=== PATIENT | male | born 1975 | race Caucasian/White ===

== ENCOUNTER 2017-12-12 23:39 | Emergency (ER) | payer MEDICAID ==
--- NOTE | 2017-12-13 00:40 | ED PDOC ---
HPI: Back Chief Complaint (Provider): Right lower back pain, radaiting down the right leg History Per: Patient History/Exam Limitations: no limitations Onset/Duration Of Symptoms: Days Current Symptoms Are (Timing): Still Present Quality Of Discomfort: Sharp Severity: Moderate Previous Symptoms: None Associated Symptoms: None Additional Complaint(s): Pt reports similar 6 years ago, has MRI at that time which showed herniated disc. PT denies fever/chills. No bladder or bowel incontinence. No numbness/tingling. <Svitlana Vega - Last Filed: 12/13/17 01:41> <Jace Bower - Last Filed: 12/14/17 05:07> Time Seen by Provider: 12/13/17 00:00 Chief Complaint (Nursing): Back Pain Past Medical History Reviewed: Historical Data, Nursing Documentation, Vital Signs Vital Signs: Last Vital Signs Temp 98.9 F 12/12/17 23:56 Pulse 86 12/12/17 23:56 Resp 16 12/12/17 23:56 BP 179/107 H 12/12/17 23:56 Pulse Ox 98 12/12/17 23:56 - Medical History PMH: Diabetes - Surgical History Surgical History: No Surg Hx - Family History Family History: States: No Known Family Hx - Living Arrangements Living Arrangements: With Family - Social History Current smoker - smoking cessation education provided: No <Svitlana Vega - Last Filed: 12/13/17 01:41> Vital Signs: Last Vital Signs Temp 98.2 F 12/13/17 01:24 Pulse 83 12/13/17 01:24 Resp 18 12/13/17 01:24 BP 139/82 12/13/17 01:24 Pulse Ox 98 12/13/17 01:42 <Jace Bower - Last Filed: 12/14/17 05:07> - Home Medications Home Medications: Ambulatory Orders Medication Instructions Recorded Acetic Acid/Antipyrine/Benzo 2 drop OT QID PRN #10 ml 12/26/13 [Auralgan 14 ml] Metformin Hydrochloride [Metformin] 500 mg PO DAILY 12/26/13 RX: Ciprofloxacin/Dexamethasone 4 drop OT BID #5 ml 12/26/13 [Ciprodex Otic] Acetaminophen with Codeine 1 tab PO Q6 PRN #15 tab 01/15/14 [Tylenol with Codeine No. 3 300 mg-30 mg] Ciprofloxacin/Ciprofloxa HCl 500 mg PO BID #14 tab 01/15/14 [Ciprofloxacin] RX: Ofloxacin Otic 0.3% [Floxin 5 drop TOP DAILY #1 bottle 01/15/14 0.3% Otic Soln] Ibuprofen [Motrin] 600 mg PO Q6H PRN #15 tab 03/10/15 Cyclobenzaprine [Cyclobenzaprine 10 mg PO Q8H #20 tab 12/13/17 HCl] RX: Naproxen [Naprosyn] 500 mg PO BID PRN #20 tablet 12/13/17 - Allergies Allergies/Adverse Reactions: Allergies Allergy/AdvReac Type Severity Reaction Status Date / Time No Known Allergies Allergy Verified 12/12/17 23:55 Supervising Attending Note - Attestation: I have reviewed all pertinent clinical information: Yes <Jace Bower - Last Filed: 12/14/17 05:07> Review of Systems ROS Statement: Except As Marked, All Systems Reviewed And Found Negative Constitutional: Negative for: Fever, Chills Musculoskeletal: Positive for: Back Pain, Leg Pain <Svitlana Vega - Last Filed: 12/13/17 01:41> Physical Exam - Reviewed Nursing Documentation Reviewed: Yes Vital Signs Reviewed: Yes - Physical Exam Appears: Positive for: Well, Non-toxic, No Acute Distress Head Exam: Positive for: ATRAUMATIC, NORMAL INSPECTION, NORMOCEPHALIC Skin: Positive for: Normal Color, Warm, DRY Eye Exam: Positive for: Normal appearance ENT: Positive for: Normal ENT Inspection Neck: Positive for: Normal, Painless ROM Cardiovascular/Chest: Positive for: Regular Rate, Rhythm Respiratory: Positive for: Normal Breath Sounds. Negative for: Accessory Muscle Use, Respiratory Distress Back: Positive for: Normal Inspection, Other ((+) right leg raise ). Negative for: Vertebral Tenderness, Muscle Spasm Extremity: Positive for: Normal ROM Neurologic/Psych: Positive for: Alert, Oriented <Svitlana Vega - Last Filed: 12/13/17 01:41> - ECG O2 Sat by Pulse Oximetry: 98 Pulse Ox Interpretation: Normal <Svitlana Vega - Last Filed: 12/13/17 01:41> Disposition - Patient ED Disposition Is Patient to be Admitted: No Counseled Patient/Family Regarding: Diagnosis, Need For Followup - Disposition Disposition: Routine/Home Disposition Time: 01:42 <Svitlana Vega - Last Filed: 12/13/17 01:41> <Jace Bower - Last Filed: 12/14/17 05:07> - Clinical Impression Clinical Impression: Sciatica - Disposition Referrals: Fuentes Moser MD [Staff Provider] - Condition: GOOD Prescriptions: Cyclobenzaprine [Cyclobenzaprine HCl] 10 mg PO Q8H #20 tab RX: Naproxen [Naprosyn] 500 mg PO BID PRN #20 tablet PRN Reason: Pain Instructions: Sciatica (DC) Forms: [employer] (Mosotho)
[2017-12-13 01:24] VITALS: BP 139/82; PULSE 83; RESP 18; TEMP 98.2
[2017-12-13 01:43] VITALS: O2SAT 98
== END 2017-12-13 02:04 | disposition home or self-care (01) ==
LOC: H.ER 23:39
DX: M54.31 Sciatica, right side (principal); E11.9 Type 2 diabetes mellitus without complications; Z79.84 Long term (current) use of oral hypoglycemic drugs
CPT/HCPCS: 96372; 99283; J2930